=== PATIENT | female | born 1945 | race African-American/Black ===

== ENCOUNTER → 2017-01-01 | Outpatient (CLI) | payer OTHER | LOC: MC.RAD 10:58 | DX: Z12.31 Encounter for screening mammogram for malignant neoplasm of breast (principal) ==

== ENCOUNTER → 2018-01-24 | Outpatient (CLI) | payer BC | LOC: MC.RAD 10:00 | DX: Z12.31 Encounter for screening mammogram for malignant neoplasm of breast (principal) ==

== ENCOUNTER → 2019-04-29 | Outpatient (CLI) | payer MEDICARE | LOC: MC.RAD 12:51 | DX: Z12.31 Encounter for screening mammogram for malignant neoplasm of breast (principal) ==

== ENCOUNTER → 2020-05-25 | Outpatient (CLI) | payer MEDICARE | LOC: MC.RAD | DX: Z12.31 Encounter for screening mammogram for malignant neoplasm of breast (principal) ==

== ENCOUNTER → 2021-04-17 | Outpatient (CLI) | payer MEDICARE | LOC: COL.RAD 13:43 | DX: M16.0 Bilateral primary osteoarthritis of hip (principal); S76.011A Strain of muscle, fascia and tendon of right hip, initial encounter ==

== ENCOUNTER → 2021-06-27 | Outpatient (CLI) | payer MEDICARE | LOC: MC.RAD 09:24 | DX: Z12.31 Encounter for screening mammogram for malignant neoplasm of breast (principal) ==

== ENCOUNTER → 2023-02-14 | Outpatient (CLI) | payer MEDICARE | LOC: COL.RAD 07:06 | DX: K44.9 Diaphragmatic hernia without obstruction or gangrene (principal); K21.9 Gastro-esophageal reflux disease without esophagitis ==

== ENCOUNTER → 2023-04-12 | Outpatient (CLI) | payer MEDICARE | LOC: COL.RAD 10:04 | DX: M25.552 Pain in left hip (principal) ==

== ENCOUNTER 2023-05-22 09:27 | Outpatient (RCR) | payer MEDICARE | END 2023-06-16 | disposition home or self-care (01) | LOC: MKS.ESL.PT | DX: M16.12 Unilateral primary osteoarthritis, left hip (principal) ==

== ENCOUNTER → 2023-10-08 | Outpatient (CLI) | payer MEDICARE | LOC: MC.RAD 10:01 | DX: Z12.31 Encounter for screening mammogram for malignant neoplasm of breast (principal) ==